=== PATIENT | male | born 1990 | race Caucasian/White ===

== ENCOUNTER 2017-06-24 21:51 | Emergency (ER) | payer SELFPAY ==
--- NOTE | 2017-06-25 07:50 | CT ---
CT OF THE BRAIN WITHOUT CONTRAST: INDICATION: Left eye vision loss and headache. FINDINGS: No acute infarct, hemorrhage, or hydrocephalus is present. Septum pellucidum and third ventricle are midline. The visualized aspects of the left globe appear intact. Visualized aspects of the orbits bilaterally appear within normal limits. No definite acute osseous abnormality is evident. Mastoid air cells are clear. IMPRESSION: No acute intracranial abnormality. POS: [facility]
== END 2017-06-25 00:54 | disposition home or self-care (01) ==
LOC: ERS 21:51
DX: G43.819 Other migraine, intractable, without status migrainosus (principal); Z87.891 Personal history of nicotine dependence
CPT/HCPCS: 70450

== ENCOUNTER 2017-07-04 22:31 | Emergency (ER) | payer SELFPAY ==
[2017-07-04 22:57] LABS: Bilirubin Negative (Negative); Blood, Urine Negative (Negative); Clarity CLEAR (Clear); Glucose, Urine (Dipstick) Negative (Negative); Leukocyte Negative (Negative); Nitrite Negative (Negative); Protein, Urine (Dipstick) Negative (Neg-Trace); Specific Gravity, Urine 1.008 (1.002-1.036); Urobilinogen 0.2 mg/dL (0.2-1.0); pH, Urine 5.5 (5.0-9.0)
--- NOTE | 2017-07-04 23:43 | RAD ---
FRONTAL VIEW CHEST: 07/04/17 COMPARISON: 04/08/14 CLINICAL HISTORY: Fatigue and weakness with chest pressure and chest pain. FINDINGS: There is accentuation of the cardiomediastinal silhouette. No lobar consolidation, effusion or pneumo thorax. Leads overlie the chest limiting detail. IMPRESSION: No focal consolidation. POS: [facility]
[2017-07-04 23:56] LABS: #Lymphocytes 2.4 thou/uL (1.20-3.40); #Monocytes 0.6 thou/uL (0.11-0.59); #Neutrophils 6.2 thou/uL (1.40-6.50); %Basophils 0.3 % (0.0-1.0); %Eosinophils 0.5 % (0.0-10.0); %Lymphocytes 25.8 % (21.0-51.0); %Monocytes 6.5 % (0.0-10.0); %Neutrophils 66.8 % (42.0-75.0); Hemoglobin 14.5 g/dL (14.0-18.0); Mean Corpuscular HGB CONC 33.9 g/dL (32.0-36.0); Mean Corpuscular Hemoglobin 30.1 pg (27.0-31.0); Mean Corpuscular Volume 88.8 fl (80.0-94.0); Mean Platelet Volume 7.2 fL (7.4-10.4); Platelet Count 233 thou/uL (130-400); RBC Distribution Width 10.8 % (11.5-14.5); Red Blood Cell (RBC) Count 4.81 mill/uL (4.70-6.10); White Blood Cell (WBC) Count 9.3 thou/uL (4.8-10.8)
[2017-07-05 00:20] LABS: ALT (SGPT) 19 U/L (8-55); AST (SGOT) 20 U/L (5-34); Albumin 4.5 g/dL (3.5-5.0); Alkaline Phosphatase 51 U/L (40-150); Anion Gap 13 mmol/L (10-20); BUN (Urea Nitrogen) 17 mg/dL (8.9-20.6); Bilirubin, Total 0.9 mg/dL (0.2-1.2); CK (CPK) 184 U/L (30-200); Calc. Creatinine Clearance 0 mL/min (70-130); Calcium 9.8 mg/dL (7.8-10.44); Carbon Dioxide 24 mmol/L (22-29); Chloride 102 mmol/L (98-107); Estimated GFR-MDRD 87; Globulin 3.2 g/dL (2.4-3.5); Glucose 102 mg/dL (70-105); Lipase 9 U/L (8-78); Potassium 3.9 mmol/L (3.5-5.1); Protein, Total 7.7 g/dL (6.0-8.3); Sodium 135 mmol/L (136-145)
== END 2017-07-05 00:49 | disposition home or self-care (01) ==
LOC: ERS 22:31
DX: R53.1 Weakness (principal); K58.9 Irritable bowel syndrome, unspecified; Z87.891 Personal history of nicotine dependence
CPT/HCPCS: 36415; 71045; 80053; 81003; 82550; 83690; 84443; 85025; 85652; 86140; 93005